=== PATIENT | male | born 1930 | race Caucasian/White ===

== ENCOUNTER 2016-09-22 15:18 | Inpatient (IN) | payer MEDICARE ==
[~2016-09-22] VITALS: Ht 168.9 cm; Wt 59.4 kg
[2016-09-22 15:31] LABS: BASOPHILS # (AUTO) 0.1 /CMM (0.0-0.2); BASOPHILS % (AUTO) 0.6 % (0.0-2.0); EOSINOPHILS # (AUTO) 0.3 /CMM (0.0-0.7); EOSINOPHILS % (AUTO) 2.6 % (0.0-6.0); HEMATOCRIT 39 % (39-51); HEMOGLOBIN 12.9 g/dL (13.5-17.5); LYMPHOCYTES # (AUTO) 4.6 /CMM (0.8-4.8); LYMPHOCYTES % (AUTO) 36.3 % (20.0-44.0); MEAN CORPUSCULAR HEMOGLOBIN 31 PG (26.0-33.0); MEAN CORPUSCULAR HGB CONC 34 g/dl (31.0-36.0); MEAN CORPUSCULAR VOLUME 92 fL (80-96); MONOCYTES # (AUTO) 1.1 /CMM (0.1-1.30); MONOCYTES % (AUTO) 8.4 % (2.0-12.0); NEUTROPHILS # (AUTO) 6.5 /CMM (1.8-8.9); NEUTROPHILS % (AUTO) 52.1 % (43.0-81.0); PLATELET COUNT (AUTO) 210 /CMM (150-450); RDW COEFFICIENT OF VARIATION 13.4 (11.5-15.0); WHITE BLOOD COUNT (AUTO) 12.6 K/uL (4.3-11.0)
--- NOTE | 2016-09-22 15:33 | NUR ---
PT TAKEN TO CT VIA JIAN
--- NOTE | 2016-09-22 15:37 | NUR ---
CALLED NURSING SUP. FOR TELE BED
[2016-09-22 15:42] LABS: CALCIUM, SERUM 8.9 mg/dL (8.5-10.1); CREATININE 1.6 mg/dL (0.6-1.3); POTASSIUM 4.6 mmol/L (3.5-5.1)
[2016-09-22 15:45] LABS: INR 0.95 (0.87-1.13); PROTHROMBIN TIME 9.9 SECS (9.5-12.7)
--- NOTE | 2016-09-22 15:45 | NUR ---
jose c from [facility] due to witnessed seizure. Patient arrived, alert, awake, appears in no apparent distress. Respiration even and unalabored. Skin is warm to touch and non diaphroretic, patient is afebrile. vss,. seizure precaution observed
[2016-09-22 15:48] LABS: ALBUMIN 3.6 g/dL (3.4-5.0); BILIRUBIN,DIRECT 0.1 mg/dL (0.0-0.2); BILIRUBIN,TOTAL 0.4 mg/dL (0.2-1.0); TOTAL PROTEIN, SERUM 7.1 g/dL (6.4-8.2)
[2016-09-22 15:49] LABS: TROPONIN I 0.017 ng/mL (0.00-0.056)
[2016-09-22] MEDS ORDERED: CARV3.122 PO (16:06)
[2016-09-22] MEDS ORDERED: CLOP75TA2 PO (16:06)
[2016-09-22] MEDS ORDERED: DUTA0.5C15 PO (16:06)
[2016-09-22] MEDS ORDERED: INSU100I14 SQ (16:06)
[2016-09-22] MEDS ORDERED: IRBE75TA11 PO (16:06)
[2016-09-22] MEDS ORDERED: GABA-532 PO ×2 (16:06)
[2016-09-22] MEDS ORDERED: DOXY-182 PO (16:06)
[2016-09-22] MEDS ORDERED: ROSU40TA PO (16:06)
[2016-09-22] MEDS ORDERED: INSU3INS6 SQ (16:06)
[2016-09-22] MEDS ORDERED: DONE10TA44 PO (16:06)
[2016-09-22] MEDS ORDERED: LEVO125T PO (16:06)
--- NOTE | 2016-09-22 16:18 | NUR ---
Report given to nurse Stepan jacinto lynn
--- NOTE | 2016-09-22 16:18 | NUR ---
Jason Berg, talking to MD gates for plan of care
--- NOTE | 2016-09-22 16:26 | NUR ---
CALLED (PCP), TRANSFERRED CALL TO
[2016-09-22] MEDS ORDERED: IV NS 0.9% 1,000 ML BAG IV ONE (16:30)
[2016-09-22] MEDS ORDERED: IV NS 0.9% 1,000 ML ONE (16:40)
[2016-09-22] MEDS ORDERED: MAG HYDROX/AL HYDROX/SIMETH 30 ML UDC PO PRN (17:00)
[2016-09-22] MEDS ORDERED: Z GUARD REMEDY 2 OZ OINT TP PRN (17:00)
[2016-09-22] MEDS ORDERED: ACETAMINOPHEN 325 MG TABLET PO PRN (17:00)
[2016-09-22] MEDS ORDERED: ONDANSETRON HCL/PF 4 MG/2 ML VIAL IVP PRN (17:00)
[2016-09-22] MEDS ORDERED: MAGNESIUM HYDROXIDE 30 ML UDC PO PRN (17:00)
[2016-09-22] MEDS ORDERED: VANCOMYCIN 1 GM in IV D5W 250 ML IV ONE (17:00)
[2016-09-22 17:10] VITALS: BP 127/68
--- NOTE | 2016-09-22 17:14 | NUR ---
pt transported to [address] [place] [address]
--- NOTE | 2016-09-22 17:15 | NUR ---
tele field applications specialist: admission admitted this 86 yr old male pt from [facility] with dx: new onset of seizure. awake, a/ox3, [place]; wears hearing aid to left ear. 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 family at bedside. oriented to room and surroundings. denies chest pain, sob, or any discomfort. vss, afebrile. in no apparent distress noted. will continue to monitor.
[2016-09-22] MEDS ORDERED: FEE PK DOSING 1 MIN EA MC ONE (17:34)
--- NOTE | 2016-09-22 17:40 | NUR ---
tele solidworks mechanical designer: notes placed pt on tele sr with bbb=[id number]. family remains at bedside. vadim river (anc[facility]) at bedside talking to pt's family and updated plan of care
--- NOTE | 2016-09-22 18:10 | NUR ---
m/s obstetrics and gynecology professor: notes dr. whittington notified re: admission with tx order received. may give tylenol prior to wound change. pt and made aware, but refused to assess wound on right foot (2nd toe diabetic ulcer), stated, "it was just dressed today, can it wait until tomorrow." [facility].
[2016-09-22] MEDS ORDERED: DEXTROSE 50%-WATER 50 ML DISP.SYRIN IV PRN (18:30)
[2016-09-22] MEDS: GENTAMICIN 0.1% OINT 15 GM TUBE TP SCH (18:44)
--- NOTE | 2016-09-22 19:00 | NUR ---
tele factory maintenance manager: cardio consult dr. toney here to see pt for consult. tele sr with bbb=86. remains at bedside. needs attended. instructed to call for assistance. will continue to monitor.
[2016-09-22 20:00] VITALS: BP 141/63
[2016-09-22] MEDS ORDERED: IV SET PRIMARY PUMP SET 1 EA INFUS.SET MC ONE (20:38)
[2016-09-22] MEDS ORDERED: IV NS 0.9% 250 ML IV ONE (20:38)
[2016-09-22] MEDS ORDERED: SECONDARY IV SET 1 EA INFUS.SET MC ONE ×2 (20:38→21:23)
[2016-09-22] MEDS: PIPERACILLIN /TAZOBACTAM 2.25 G in IV D5W 50 ML IV SCH (20:44)
[2016-09-22] MEDS: BLOOD SUGAR DIAGNOSTIC 1 EACH STRIP IN SCH ×2 (21:24→22:37)
[2016-09-22] MEDS: VANCOMYCIN 0.75 GM in IV D5W 250 ML IV SCH (21:25)
[2016-09-22] MEDS ORDERED: ATORVASTATIN 40 MG TABLET PO SCH (22:00)
[2016-09-22] MEDS: IV NS 0.9% 1,000 ML IV PRN (22:22)
[2016-09-22] MEDS: DONEPEZIL 5 MG TABLET PO SCH (22:23)
[2016-09-22] MEDS: GABAPENTIN 100 MG CAPSULE PO SCH (22:23)
[2016-09-22] MEDS: INSULIN REGULAR, HUMAN 100 UNIT/ML 3 ML VIAL SQ PRN (22:31)
[2016-09-22] MEDS: HEPARIN SODIUM, PORCINE 5000 UNITS/1 ML VIAL SQ SCH (22:32)
[2016-09-23] VITALS: BP 141/63
--- NOTE | 2016-09-23 01:13 | NUR ---
TELE/RN BLOOD SUGAR 39. RECHECKED, 38, PATIENT IS ASYMPTOMATIC, AWAKE, ALERT, ORIENTED. D50 IV WAS GIVEN ORDERED. WILL MONITOR.
[2016-09-23] MEDS: BLOOD SUGAR DIAGNOSTIC 1 EACH STRIP IN SCH ×9 (01:42→22:00)
--- NOTE | 2016-09-23 01:42 | NUR ---
TELE/RN ACCU CHECK DONE, BS 132. WILL CONTINUE TO MONITOR.
[2016-09-23] MEDS: PIPERACILLIN /TAZOBACTAM 2.25 G in IV D5W 50 ML IV SCH ×4 (01:43→17:25)
--- NOTE | 2016-09-23 06:44 | NUR ---
TELE/RN AWAKE, ALERT, ORIENTED, COMFORTABLE, NO CHANGE IN CONDITION. BLOOD SUGAR 191 DID NOT COVER THE BLOOD SUGAR AT 0100 WAS 39. WILL ENDORSE TO DAY RN. ALL NEEDS ATTENDED AT THIS TIME. WILL CONTINUE TO MONITOR.
--- NOTE | 2016-09-23 07:10 | NUR ---
SLEDGER OPENING NOTES RECEIVED PT. FROM NIGHTSHIFT NURSE IN STABLE CONDITION. A/O X3. NO SOB OR SIGNS OF DISTRESS NOTED. NO COMPLAINTS OF PAIN AT THIS TIME. WOUND PRESENT ON RIGHT BIG TOE AND SECOND TOE. DRESSING IS DRY AND INTACT. IV ON LEFT AC 20G PATENT AND INTACT INFUSING NS @ 75 ML/HR. PT. TOLERATING INFUSION WELL. NO REDNESS OR INFILTRATION NOTED. ON TELE MONITOR WITH SR & BBB, HR:75. SEIZURE PRECAUTIONS IN PLACE. BED IN LOW LOCKED POTION, SIDE RAILS UP X3 AND PADDED, CALL LIGHT WITHIN REACH. WILL CONTINUE TO MONITOR.
[2016-09-23 08:00] VITALS: BP 119/57
[2016-09-23 08:23] LABS: BASOPHILS % (AUTO) 0.3 % (0.0-2.0); EOSINOPHILS # (AUTO) 0.1 /CMM (0.0-0.7); EOSINOPHILS % (AUTO) 1.2 % (0.0-6.0); HEMATOCRIT 31 % (39-51); HEMOGLOBIN 10.6 g/dL (13.5-17.5); LYMPHOCYTES # (AUTO) 1.6 /CMM (0.8-4.8); LYMPHOCYTES % (AUTO) 19.3 % (20.0-44.0); MEAN CORPUSCULAR HEMOGLOBIN 30 PG (26.0-33.0); MEAN CORPUSCULAR HGB CONC 34 g/dl (31.0-36.0); MEAN CORPUSCULAR VOLUME 89 fL (80-96); MONOCYTES # (AUTO) 0.6 /CMM (0.1-1.30); MONOCYTES % (AUTO) 7.8 % (2.0-12.0); NEUTROPHILS # (AUTO) 5.8 /CMM (1.8-8.9); NEUTROPHILS % (AUTO) 71.4 % (43.0-81.0); PLATELET COUNT (AUTO) 158 /CMM (150-450); RDW COEFFICIENT OF VARIATION 13.6 (11.5-15.0); RED BLOOD CELL COUNT(AUTO) 3.51 MIL/uL (4.5-6.0); WHITE BLOOD COUNT (AUTO) 8.2 K/uL (4.3-11.0)
[2016-09-23 08:49] LABS: ALANINE AMINOTRANSFERASE 21 U/L (12-78); ALBUMIN 2.8 g/dL (3.4-5.0); ALKALINE PHOSPHATASE 47 U/L (46-116); ASPARTATE AMINOTRANSFERASE 26 U/L (15-37); BILIRUBIN,TOTAL 0.6 mg/dL (0.2-1.0); CALCIUM, SERUM 7.9 mg/dL (8.5-10.1); CARBON DIOXIDE 25 mmol/L (21-32); CHLORIDE 109 mmol/L (98-107); CREATININE 1.3 mg/dL (0.6-1.3); GLUCOSE 194 mg/dL (74-106); PHOSPHORUS 4.2 mg/dL (2.5-4.9); SODIUM SERUM 143 mmol/L (136-145); TOTAL PROTEIN, SERUM 5.7 g/dL (6.4-8.2); UREA NITROGEN, BLOOD 26 mg/dL (7-18)
[2016-09-23 08:51] LABS: CHOLESTEROL 141 mg/dL (<200); HDL CHOLESTEROL 56 mg/dL (40-60); LDL 67 mg/dL (0-99); THYROID STIMULATING HORMONE 0.125 uIU/mL (0.358-3.74); TRIGLYCERIDES 67 mg/dL (30-150)
[2016-09-23] MEDS: GENTAMICIN 0.1% OINT 15 GM TUBE TP SCH (09:00)
[2016-09-23] MEDS: ASPIRIN 81 MG TAB.CHEW PO SCH (09:11)
[2016-09-23] MEDS: CARVEDILOL 3.125 MG TABLET PO SCH ×2 (09:12→17:23)
[2016-09-23] MEDS: DUTASTERIDE (0.5 MG) 0.5 MG CAPSULE PO SCH (09:13)
[2016-09-23] MEDS: CLOPIDOGREL BISULFATE 75 MG TABLET PO SCH (09:13)
[2016-09-23] MEDS: PANTOPRAZOLE 40 MG TABLET.DR PO SCH (09:14)
[2016-09-23] MEDS: LEVOTHYROXINE SODIUM 125 MCG TABLET PO SCH (09:14)
[2016-09-23] MEDS: GABAPENTIN 100 MG CAPSULE PO SCH ×2 (09:15→21:59)
[2016-09-23] MEDS: IRBESARTAN (150MG) 150 MG TABLET PO SCH (09:16)
[2016-09-23] MEDS: HEPARIN SODIUM, PORCINE 5000 UNITS/1 ML VIAL SQ SCH ×2 (09:17→22:06)
--- NOTE | 2016-09-23 09:43 | NUR ---
PORTABLE TRACKMAN NOTES PT. IS REFUSING PICTURES OF SKIN AND WOUND AT THIS TIME.
--- NOTE | 2016-09-23 10:17 | NUR ---
WOUND CARE CONSULT: PT REFUSED SKIN ASSESSMENT.
[2016-09-23] MEDS: INSULIN REGULAR, HUMAN 100 UNIT/ML 3 ML VIAL SQ PRN ×3 (11:33→22:15)
[2016-09-23 12:00] VITALS: BP 127/61
[2016-09-23] MEDS: VANCOMYCIN 0.75 GM in IV D5W 250 ML IV SCH (14:17)
[2016-09-23] MEDS: IV NS 0.9% 1,000 ML IV PRN (15:37)
[2016-09-23 16:00] VITALS: BP 122/58
--- NOTE | 2016-09-23 19:07 | NUR ---
MS RN CLOSING NOTES PT. IN STABLE CONDITION. A/O X3 WITH PERIODS OF CONFUSION. AT BEDSIDE. ALL NEEDS MET AND ORDERS CARRIED OUT ACCORDINGLY. ALL SAFETY MEASURES IN PLACE. NO SEIZURE ACTIVITY DURING SHIFT. WILL ENDORSE TO NIGHTSHIFT NURSE FOR RACHEL.
[2016-09-23 20:00] VITALS: BP 112/47
[2016-09-23] MEDS: DONEPEZIL 5 MG TABLET PO SCH (21:59)
[2016-09-23] MEDS ORDERED: CRESTOR 40 MG PO SCH (22:00)
--- NOTE | 2016-09-23 22:15 | NUR ---
PROCESSING ASSOCIATE/NOTES BLOOD SUGAR 173, 3 UNITS OF INSULIN GIVEN ORDERED BETTY SQ AND SNACKS ALSO SERVED. WILL CONTINUE TO MONITOR. PLACE CALL LIGHT AT REACH.
--- NOTE | 2016-09-24 | NUR ---
CHARGE ACCOUNT IDENTIFICATION CLERK/NOTES ZOSYN IVF HUNG BY NURSE BREA ORDERED. WILL CONTINUE TO MONITOR. BED ALARM SET FOR SAFETY.
[2016-09-24] MEDS: PIPERACILLIN /TAZOBACTAM 2.25 G in IV D5W 50 ML IV SCH ×3 (00:04→12:17)
[2016-09-24] MEDS: BLOOD SUGAR DIAGNOSTIC 1 EACH STRIP IN SCH ×2 (06:28→12:17)
[2016-09-24] MEDS: INSULIN REGULAR, HUMAN 100 UNIT/ML 3 ML VIAL SQ PRN ×2 (06:33→12:24)
--- NOTE | 2016-09-24 06:56 | NUR ---
BONE PLANT SUPERVISOR/CLOSING NOTES BLOOD SUGAR 268,. 6 UNITS OF INSULIN GIVEN . NO SIGNS OF HYPER GLYCEMIA NOTED. ALL DUE MEDS GIVEN . SLEPT ON AND OFF. RE-ORIENTED MUCH POSSIBLE, BED ALARM SET FOR SAFETY. IVF STILL INFUSING. ENDORSE TO AM NURSE FOR CONTINUITY OF CARE.
[2016-09-24 06:57] LABS: CALCIUM, SERUM 8.3 mg/dL (8.5-10.1); CARBON DIOXIDE 24 mmol/L (21-32); CHLORIDE 109 mmol/L (98-107); CREATININE 1.4 mg/dL (0.6-1.3); GLUCOSE 294 mg/dL (74-106); POTASSIUM 4.9 mmol/L (3.5-5.1); SODIUM SERUM 143 mmol/L (136-145); UREA NITROGEN, BLOOD 25 mg/dL (7-18)
[2016-09-24] MEDS: VANCOMYCIN 0.75 GM in IV D5W 250 ML IV SCH (07:17)
[2016-09-24 08:00] VITALS: BP 130/72
--- NOTE | 2016-09-24 08:00 | NUR ---
AM RN NOTES RECEIVED PT IN BED AWAKE, NO SOB OR DISTRESS NOTED, NO PAIN OR DISCOMFORT, WILL MONITOR, PT'S SON AT BEDSIDE.
[2016-09-24] MEDS: GABAPENTIN 100 MG CAPSULE PO SCH (08:37)
[2016-09-24] MEDS: LEVOTHYROXINE SODIUM 125 MCG TABLET PO SCH (08:38)
[2016-09-24] MEDS: CLOPIDOGREL BISULFATE 75 MG TABLET PO SCH (08:38)
[2016-09-24] MEDS: DUTASTERIDE (0.5 MG) 0.5 MG CAPSULE PO SCH (08:38)
[2016-09-24] MEDS: ASPIRIN 81 MG TAB.CHEW PO SCH (08:38)
[2016-09-24] MEDS: CARVEDILOL 3.125 MG TABLET PO SCH (08:39)
[2016-09-24] MEDS: PANTOPRAZOLE 40 MG TABLET.DR PO SCH (08:39)
[2016-09-24] MEDS: GENTAMICIN 0.1% OINT 15 GM TUBE TP SCH (08:40)
[2016-09-24 08:41] VITALS: BP 130/72
[2016-09-24] MEDS: IRBESARTAN (150MG) 150 MG TABLET PO SCH (08:41)
[2016-09-24] MEDS: HEPARIN SODIUM, PORCINE 5000 UNITS/1 ML VIAL SQ SCH (08:45)
--- NOTE | 2016-09-24 14:15 | NUR ---
PT DISCHARGED HOME WITH IN STABLE CONDITION, NO PAIN OR DISCOMFORT NOTED, NO SOB OR DISTRESS, NO S/S OF HYPO/HYPERGLYCEMIA NOTED, WOUND DRESSING ON RIGHT FOOT DONE, PICTURES TAKEN AND PLACED IN CHART, INSTRUCTIONS GIVEN, EDUCATION DONE, PT ACCOMPANIED BY ME AND HIS , LEFT HOSPITAL WITH PRIVATE CARE SAFELY.
[2016-09-24] MEDS ORDERED: VANCOMYCIN 1 GM in IV D5W 250 ML IV SCH (21:00)
== END 2016-09-24 14:10 | disposition home or self-care (01) | DRG 100 ==
LOC: ER 15:20 → TELE 16:38 → MED 09-23 16:08
PROVIDERS: ADMIT Nurse Practitioner Acute Care; ATTEND Nurse Practitioner Acute Care
DX: G40.409 Other generalized epilepsy and epileptic syndromes, not intractable, without status epilepticus (principal); N17.0 Acute kidney failure with tubular necrosis; M86.8X7 Other osteomyelitis, ankle and foot; I12.9 Hypertensive chronic kidney disease with stage 1 through stage 4 chronic kidney disease, or unspecified chronic kidney disease; G40.509 Epileptic seizures related to external causes, not intractable, without status epilepticus; F03.90 Unspecified dementia, unspecified severity, without behavioral disturbance, psychotic disturbance, mood disturbance, and anxiety; N18.9 Chronic kidney disease, unspecified; Z95.1 Presence of aortocoronary bypass graft; I25.10 Atherosclerotic heart disease of native coronary artery without angina pectoris; E10.22 Type 1 diabetes mellitus with diabetic chronic kidney disease; E10.649 Type 1 diabetes mellitus with hypoglycemia without coma; E10.69 Type 1 diabetes mellitus with other specified complication; E78.5 Hyperlipidemia, unspecified; G89.29 Other chronic pain; Z79.4 Long term (current) use of insulin; Z79.899 Other long term (current) drug therapy; Z85.850 Personal history of malignant neoplasm of thyroid; N40.0 Benign prostatic hyperplasia without lower urinary tract symptoms; Z86.73 Personal history of transient ischemic attack (TIA), and cerebral infarction without residual deficits; T41.5X5A Adverse effect of therapeutic gases, initial encounter; Y92.238 Other place in hospital as the place of occurrence of the external cause; E89.0 Postprocedural hypothyroidism; E10.51 Type 1 diabetes mellitus with diabetic peripheral angiopathy without gangrene; Z98.1 Arthrodesis status
CPT/HCPCS: 36415; 70450-TC; 71010-TC; 80048-TC; 80053-TC; 80061-TC; 80076-TC; 80202-TC; 82962-TC; 83735-TC; 84100-TC; 84443-TC; 84484-TC; 85025-TC; 85730-TC; 87040-TC; 87081-TC; 95819-TC; A4606; J1644; J1815; J2543; J3370; J7030; J7050; J7060; Z7610

== ENCOUNTER 2017-05-07 09:05 | Outpatient (CLI) | payer MEDICARE ==
[~2017-05-07 09:05] MED LIST: CARV3.122 PO; CLOP75TA15 PO; DONE10TA44 PO; DOXY-182 PO; DUTA0.5C15 PO; GABA-532 PO; INSU100I14 SQ; INSU3INS6 SQ; IRBE75TA11 PO; LEVO125T PO; ROSU40TA PO
[2017-05-10] MEDS ORDERED: BACITRACIN 50000 UNITS/VIAL ONE (14:08)
== END 2017-05-07 23:59 | disposition other institution (70) ==
LOC: WOU 09:05
PROVIDERS: ATTEND Podiatrist Foot & Ankle Surgery
DX: E11.52 Type 2 diabetes mellitus with diabetic peripheral angiopathy with gangrene (principal); E11.621 Type 2 diabetes mellitus with foot ulcer; E11.42 Type 2 diabetes mellitus with diabetic polyneuropathy; I96 Gangrene, not elsewhere classified; L97.504 Non-pressure chronic ulcer of other part of unspecified foot with necrosis of bone; L03.115 Cellulitis of right lower limb; I25.10 Atherosclerotic heart disease of native coronary artery without angina pectoris; Z95.1 Presence of aortocoronary bypass graft; Z87.891 Personal history of nicotine dependence; Z85.850 Personal history of malignant neoplasm of thyroid; E89.0 Postprocedural hypothyroidism; H91.90 Unspecified hearing loss, unspecified ear; Z79.4 Long term (current) use of insulin; Z79.82 Long term (current) use of aspirin
CPT/HCPCS: A6402; G0463

== ENCOUNTER 2017-05-07 10:40 | Inpatient (IN) | payer MEDICARE ==
[~2017-05-07] VITALS: Ht 167.6 cm; Wt 53.1 kg
[~2017-05-07 10:40] MED LIST changes: +INSULIN DETEMIR 100 UNIT/ML CARTRIDGE SQ SCH
[2017-05-07 11:25] LABS: BASOPHILS # (AUTO) 0.1 /CMM (0.0-0.2); BASOPHILS % (AUTO) 0.8 % (0.0-2.0); EOSINOPHILS # (AUTO) 0.1 /CMM (0.0-0.7); EOSINOPHILS % (AUTO) 0.6 % (0.0-6.0); HEMATOCRIT 38 % (39-51); HEMOGLOBIN 12.7 g/dL (13.5-17.5); LYMPHOCYTES # (AUTO) 1.3 /CMM (0.8-4.8); LYMPHOCYTES % (AUTO) 7.3 % (20.0-44.0); MEAN CORPUSCULAR HEMOGLOBIN 30 PG (26.0-33.0); MEAN CORPUSCULAR HGB CONC 34 g/dl (31.0-36.0); MEAN CORPUSCULAR VOLUME 88 fL (80-96); MONOCYTES # (AUTO) 1.5 /CMM (0.1-1.30); MONOCYTES % (AUTO) 8.1 % (2.0-12.0); NEUTROPHILS # (AUTO) 15.4 /CMM (1.8-8.9); NEUTROPHILS % (AUTO) 83.2 % (43.0-81.0); PLATELET COUNT (AUTO) 331 /CMM (150-450); RDW COEFFICIENT OF VARIATION 12.5 (11.5-15.0); WHITE BLOOD COUNT (AUTO) 18.4 K/uL (4.3-11.0)
[2017-05-07] MEDS ORDERED: MORPHINE SULFATE INJ 2 MG/ML DISP.SYRIN IV ONE (11:30)
[2017-05-07] MEDS ORDERED: MORPHINE SULFATE INJ 4 MG/ML DISP.SYRIN ONE (11:30)
[2017-05-07] MEDS ORDERED: VANCOMYCIN 1 GM in IV D5W 250 ML IV ONE (11:30)
[2017-05-07] MEDS ORDERED: GENTAMICIN 80 MG in IV D5W 50 ML IV ONE (11:30)
[2017-05-07] MEDS ORDERED: ONDANSETRON HCL/PF 4 MG/2 ML VIAL IVP ONE (11:30)
[2017-05-07] MEDS ORDERED: ONDANSETRON HCL/PF 4 MG/2 ML VIAL ONE (11:30)
[2017-05-07 11:35] LABS: CALCIUM, SERUM 8.2 mg/dL (8.5-10.1); CARBON DIOXIDE 30 mmol/L (21-32); CHLORIDE 99 mmol/L (98-107); CREATININE 1.3 mg/dL (0.6-1.3); GLUCOSE 294 mg/dL (74-106); SODIUM SERUM 133 mmol/L (136-145); UREA NITROGEN, BLOOD 32 mg/dL (7-18)
[2017-05-07 11:39] LABS: INR 1.01 (0.87-1.13)
[2017-05-07 11:41] LABS: ALANINE AMINOTRANSFERASE 11 U/L (12-78); ALBUMIN 2.8 g/dL (3.4-5.0); ALKALINE PHOSPHATASE 88 U/L (46-116); ASPARTATE AMINOTRANSFERASE 23 U/L (15-37); BILIRUBIN,TOTAL 0.3 mg/dL (0.2-1.0); TOTAL PROTEIN, SERUM 7.2 g/dL (6.4-8.2)
[2017-05-07 11:43] LABS: TROPONIN I < 0.017 ng/mL (0.00-0.056)
[2017-05-07] MEDS ORDERED: METOPROLOL TARTRATE 50 MG TABLET ONE (11:58)
[2017-05-07] MEDS ORDERED: METOPROLOL TARTRATE 25 MG TABLET PO ONE (12:00)
[2017-05-07] MEDS ORDERED: IV NS 0.9% 1,000 ML IV PRN (12:16)
[2017-05-07 12:19] LABS: APPEARANCE,URINE Clear (CLEAR); BILIRUBIN,URINE Negative (NEGATIVE); BLOOD, URINE Small Ery/uL (NEGATIVE); COLOR,URINE Yellow (YELLOW); KETONES,URINE Negative (NEGATIVE); LEUKOCYTE ESTERASE ,URINE Negative (NEGATIVE); NITRITE, URINE Negative (NEGATIVE); PH,URINE 5.5 (5.0-8.0); PROTEIN,URINE 100 mg/dl (NEGATIVE); UGLUCOSE 500 MG/DL mg/dL (NEGATIVE); UROBILINOGEN,URINE 0.2 EU/dL (0.2)
[2017-05-07 12:23] LABS: BACTERIA,URINE None seen /HPF (None Seen); SQUAMOUS EPITHELIAL CELL,UR Few /HPF (None Seen); WBC,URINE 0-2 /HPF (0-3)
[2017-05-07] MEDS ORDERED: ENOXAPARIN SODIUM 30 MG/0.3 ML DISP.SYRIN SQ SCH (12:30)
[2017-05-07] MEDS ORDERED: MAG HYDROX/AL HYDROX/SIMETH 30 ML UDC PO PRN ×2 (12:30→13:15)
[2017-05-07] MEDS ORDERED: BLOOD SUGAR DIAGNOSTIC 1 EACH STRIP VI SCH (12:30)
[2017-05-07] MEDS ORDERED: Z GUARD REMEDY 2 OZ OINT TP PRN ×2 (12:30→13:15)
[2017-05-07] MEDS ORDERED: *INSULIN REGULAR(HUMULIN R)HUM 100 UNIT/ML VIAL SQ PRN ×2 (12:30→13:15)
[2017-05-07] MEDS ORDERED: VANCOMYCIN 1 GM in IV D5W 250 ML IV SCH (12:30)
[2017-05-07] MEDS ORDERED: ACETAMINOPHEN 325 MG TABLET PO PRN ×2 (12:30→13:15)
[2017-05-07] MEDS ORDERED: hydrALAZINE HCL 25 MG TABLET PO PRN (12:30)
[2017-05-07] MEDS ORDERED: ONDANSETRON HCL/PF 4 MG/2 ML VIAL IVP PRN ×2 (12:30→13:15)
[2017-05-07] MEDS ORDERED: ZOLPIDEM TARTRATE 5 MG TABLET PO PRN ×2 (12:30→13:15)
[2017-05-07] MEDS ORDERED: HYDROCODONE/APAP 5/325MG 1 EACH TABLET PO PRN (12:30)
[2017-05-07] MEDS ORDERED: DEXTROSE 50%-WATER 50 ML DISP.SYRIN IV PRN (12:30)
[2017-05-07] MEDS ORDERED: INSULIN REGULAR, HUMAN 100 UNIT/ML 3 ML VIAL SQ PRN (12:30)
[2017-05-07] MEDS ORDERED: MAGNESIUM HYDROXIDE 30 ML UDC PO PRN ×2 (12:30→13:15)
[2017-05-07] MEDS ORDERED: GENTAMICIN 80 MG in IV D5W 50 ML IV SCH (13:00)
[2017-05-07 13:10] VITALS: BP 181/81
[2017-05-07 13:15] VITALS: BP 175/68
[2017-05-07] MEDS ORDERED: FEE PK DOSING 1 MIN EA MC ONE (14:35)
[2017-05-07 15:00] VITALS: BP 133/66
[2017-05-07] MEDS: INSULIN DETEMIR 100 UNIT/ML CARTRIDGE SQ SCH (15:00)
[2017-05-07] MEDS: IV NS 0.9% 1,000 ML IV PRN (15:00)
[2017-05-07] MEDS: HYDROCODONE/APAP 5/325MG 1 EACH TABLET PO PRN ×2 (15:16→23:59)
[2017-05-07] MEDS: CADEXOMER IODINE 40 GM TUBE TP SCH (16:11)
[2017-05-07] MEDS: DOXYCYCLINE HYCLATE (100 MG) 100 MG TABLET PO SCH (16:12)
[2017-05-07] MEDS: CARVEDILOL 3.125 MG TABLET PO SCH (16:13)
[2017-05-07] MEDS: BLOOD SUGAR DIAGNOSTIC 1 EACH STRIP VI SCH ×2 (16:44→22:29)
[2017-05-07] MEDS: INSULIN REGULAR, HUMAN 100 UNIT/ML 3 ML VIAL SQ PRN (16:53)
[2017-05-07] MEDS ORDERED: CARVEDILOL 3.125 MG TABLET PO SCH (17:00)
[2017-05-07 20:00] VITALS: BP 135/70
[2017-05-07] MEDS ORDERED: GABAPENTIN 100 MG CAPSULE PO SCH (22:00)
[2017-05-07] MEDS: ENOXAPARIN SODIUM 30 MG/0.3 ML DISP.SYRIN SQ SCH (22:29)
[2017-05-07] MEDS: GABAPENTIN 100 MG CAPSULE PO SCH (22:29)
[2017-05-07] MEDS: DONEPEZIL 5 MG TABLET PO SCH (22:29)
[2017-05-08] VITALS: BP 171/83
[2017-05-08 04:00] VITALS: BP 161/70
[2017-05-08] MEDS ORDERED: VANCOMYCIN 1 GM VIAL ONE (06:13)
[2017-05-08] MEDS: IV NS 0.9% 1,000 ML IV PRN (06:13)
[2017-05-08] MEDS: BLOOD SUGAR DIAGNOSTIC 1 EACH STRIP VI SCH ×4 (06:14→21:38)
[2017-05-08] MEDS: VANCOMYCIN 1 GM in IV D5W 250 ML IV SCH (06:16)
[2017-05-08] MEDS ORDERED: LEVOTHYROXINE SODIUM 125 MCG TABLET PO SCH (07:30)
[2017-05-08 08:00] VITALS: BP 156/76
[2017-05-08 08:55] LABS: CALCIUM, SERUM 8.1 mg/dL (8.5-10.1); CARBON DIOXIDE 28 mmol/L (21-32); CHLORIDE 99 mmol/L (98-107); CREATININE 1.3 mg/dL (0.6-1.3); GLUCOSE 209 mg/dL (74-106); SODIUM SERUM 136 mmol/L (136-145); UREA NITROGEN, BLOOD 32 mg/dL (7-18)
[2017-05-08] MEDS ORDERED: GABAPENTIN 100 MG CAPSULE PO SCH (09:00)
[2017-05-08] MEDS: DOXYCYCLINE HYCLATE (100 MG) 100 MG TABLET PO SCH ×2 (09:09→18:00)
[2017-05-08] MEDS: ATORVASTATIN 10 MG TABLET PO SCH (09:09)
[2017-05-08] MEDS: GABAPENTIN 100 MG CAPSULE PO SCH ×2 (09:09→21:39)
[2017-05-08] MEDS: LEVOTHYROXINE SODIUM 125 MCG TABLET PO SCH (09:10)
[2017-05-08] MEDS: CARVEDILOL 3.125 MG TABLET PO SCH ×2 (09:10→18:00)
[2017-05-08] MEDS: CADEXOMER IODINE 40 GM TUBE TP SCH (09:12)
[2017-05-08] MEDS: DAKINS QUARTER STRENGTH (0.125%) 480 ML BOTTLE TOP SCH (11:07)
[2017-05-08] MEDS: INSULIN DETEMIR 100 UNIT/ML CARTRIDGE SQ SCH (11:08)
[2017-05-08] MEDS: INSULIN REGULAR, HUMAN 100 UNIT/ML 3 ML VIAL SQ PRN (12:12)
[2017-05-08] MEDS: HYDROCODONE/APAP 5/325MG 1 EACH TABLET PO PRN (13:55)
[2017-05-08] MEDS ORDERED: LORAZEPAM 0.5 MG TABLET PO ONE (15:30)
[2017-05-08] MEDS: MORPHINE SULFATE INJ 4 MG/ML DISP.SYRIN IV PRN (15:53)
[2017-05-08 16:00] VITALS: BP 129/57
[2017-05-08] MEDS ORDERED: MORPHINE SULFATE INJ 4 MG/ML DISP.SYRIN IV PRN (16:00)
[2017-05-08] MEDS: GENTAMICIN 80 MG in IV D5W 50 ML IV SCH (16:16)
[2017-05-08 20:00] VITALS: BP 166/98
[2017-05-08] MEDS: ENOXAPARIN SODIUM 30 MG/0.3 ML DISP.SYRIN SQ SCH (21:39)
[2017-05-08] MEDS: DONEPEZIL 5 MG TABLET PO SCH (21:39)
[2017-05-08] MEDS: DEXTROSE 50%-WATER 50 ML DISP.SYRIN IV PRN (21:43)
[2017-05-08] MEDS ORDERED: TRAMADOL HCL 50 MG TABLET PO PRN (22:30)
[2017-05-08] MEDS ORDERED: IV D5/0.45 NACL 1,000 ML IV ONE (22:30)
[2017-05-08] MEDS ORDERED: ALPRAZOLAM 0.25 MG TABLET PO PRN (22:30)
[2017-05-09] MEDS: VANCOMYCIN 1 GM in IV D5W 250 ML IV SCH (00:37)
[2017-05-09] MEDS: MORPHINE SULFATE INJ 4 MG/ML DISP.SYRIN IV PRN (00:46)
[2017-05-09] MEDS: BLOOD SUGAR DIAGNOSTIC 1 EACH STRIP VI SCH ×4 (07:00→21:11)
[2017-05-09 07:04] LABS: EOSINOPHILS # (AUTO) 0.1 /CMM (0.0-0.7); EOSINOPHILS % (AUTO) 0.4 % (0.0-6.0); HEMATOCRIT 35 % (39-51); HEMOGLOBIN 11.9 g/dL (13.5-17.5); LYMPHOCYTES # (AUTO) 1.6 /CMM (0.8-4.8); LYMPHOCYTES % (AUTO) 7.5 % (20.0-44.0); MEAN CORPUSCULAR HEMOGLOBIN 31 PG (26.0-33.0); MEAN CORPUSCULAR HGB CONC 34 g/dl (31.0-36.0); MEAN CORPUSCULAR VOLUME 89 fL (80-96); MONOCYTES % (AUTO) 4.8 % (2.0-12.0); NEUTROPHILS # (AUTO) 18.5 /CMM (1.8-8.9); NEUTROPHILS % (AUTO) 87.3 % (43.0-81.0); PLATELET COUNT (AUTO) 302 /CMM (150-450); RDW COEFFICIENT OF VARIATION 13.5 (11.5-15.0); RED BLOOD CELL COUNT(AUTO) 3.89 MIL/uL (4.5-6.0); WHITE BLOOD COUNT (AUTO) 21.2 K/uL (4.3-11.0)
[2017-05-09 07:16] LABS: CALCIUM, SERUM 8.4 mg/dL (8.5-10.1); CARBON DIOXIDE 27 mmol/L (21-32); CHLORIDE 99 mmol/L (98-107); CREATININE 1.3 mg/dL (0.6-1.3); GLUCOSE 204 mg/dL (74-106); SODIUM SERUM 134 mmol/L (136-145); UREA NITROGEN, BLOOD 28 mg/dL (7-18)
[2017-05-09] MEDS: LEVOTHYROXINE SODIUM 125 MCG TABLET PO SCH (07:30)
[2017-05-09 08:00] VITALS: BP 147/72
[2017-05-09 08:43] LABS: MAGNESIUM 1.8 mg/dL (1.8-2.4); PHOSPHORUS 3.8 mg/dL (2.5-4.9)
[2017-05-09] MEDS: ATORVASTATIN 10 MG TABLET PO SCH (09:32)
[2017-05-09] MEDS: GABAPENTIN 100 MG CAPSULE PO SCH ×2 (09:32→21:09)
[2017-05-09] MEDS: DOXYCYCLINE HYCLATE (100 MG) 100 MG TABLET PO SCH ×2 (09:32→16:14)
[2017-05-09] MEDS: CARVEDILOL 3.125 MG TABLET PO SCH ×2 (09:32→16:13)
[2017-05-09] MEDS: INSULIN DETEMIR 100 UNIT/ML CARTRIDGE SQ SCH (09:42)
[2017-05-09] MEDS: INSULIN REGULAR, HUMAN 100 UNIT/ML 3 ML VIAL SQ PRN (12:11)
[2017-05-09] MEDS: HYDROCODONE/APAP 5/325MG 1 EACH TABLET PO PRN ×3 (12:18→21:10)
[2017-05-09 16:00] VITALS: BP 114/50
[2017-05-09] MEDS: GENTAMICIN 80 MG in IV D5W 50 ML IV SCH (16:08)
[2017-05-09] MEDS: VANCOMYCIN 0.75 GM in IV D5W 250 ML IV SCH (18:15)
[2017-05-09 20:00] VITALS: BP 142/79
[2017-05-09] MEDS: DAKINS QUARTER STRENGTH (0.125%) 480 ML BOTTLE TOP SCH (21:17)
[2017-05-09] MEDS: CADEXOMER IODINE 40 GM TUBE TP SCH (21:18)
[2017-05-09] MEDS ORDERED: DONEPEZIL 5 MG TABLET ONE (21:23)
[2017-05-09] MEDS: DONEPEZIL 5 MG TABLET PO SCH (21:25)
[2017-05-09] MEDS: ENOXAPARIN SODIUM 30 MG/0.3 ML DISP.SYRIN SQ SCH (21:40)
[2017-05-10 07:25] LABS: BASOPHILS % (AUTO) 0.1 % (0.0-2.0); EOSINOPHILS # (AUTO) 0.3 /CMM (0.0-0.7); EOSINOPHILS % (AUTO) 1.5 % (0.0-6.0); HEMATOCRIT 34 % (39-51); HEMOGLOBIN 11.8 g/dL (13.5-17.5); LYMPHOCYTES # (AUTO) 1.7 /CMM (0.8-4.8); LYMPHOCYTES % (AUTO) 9.7 % (20.0-44.0); MEAN CORPUSCULAR HEMOGLOBIN 31 PG (26.0-33.0); MEAN CORPUSCULAR HGB CONC 34 g/dl (31.0-36.0); MEAN CORPUSCULAR VOLUME 89 fL (80-96); MONOCYTES # (AUTO) 1.4 /CMM (0.1-1.30); MONOCYTES % (AUTO) 8.1 % (2.0-12.0); NEUTROPHILS # (AUTO) 13.7 /CMM (1.8-8.9); NEUTROPHILS % (AUTO) 80.6 % (43.0-81.0); PLATELET COUNT (AUTO) 311 /CMM (150-450); RDW COEFFICIENT OF VARIATION 13.8 (11.5-15.0); RED BLOOD CELL COUNT(AUTO) 3.85 MIL/uL (4.5-6.0)
[2017-05-10] MEDS: LEVOTHYROXINE SODIUM 125 MCG TABLET PO SCH (07:30)
[2017-05-10] MEDS: BLOOD SUGAR DIAGNOSTIC 1 EACH STRIP VI SCH ×4 (07:57→23:48)
[2017-05-10 08:01] LABS: CALCIUM, SERUM 8.5 mg/dL (8.5-10.1); CARBON DIOXIDE 29 mmol/L (21-32); CHLORIDE 101 mmol/L (98-107); CREATININE 1.2 mg/dL (0.6-1.3); GLUCOSE 235 mg/dL (74-106); MAGNESIUM 1.8 mg/dL (1.8-2.4); PHOSPHORUS 3.6 mg/dL (2.5-4.9); POTASSIUM 4.2 mmol/L (3.5-5.1); SODIUM SERUM 136 mmol/L (136-145); UREA NITROGEN, BLOOD 26 mg/dL (7-18)
[2017-05-10] MEDS: ATORVASTATIN 10 MG TABLET PO SCH (08:01)
[2017-05-10] MEDS: CARVEDILOL 3.125 MG TABLET PO SCH ×2 (08:01→17:05)
[2017-05-10] MEDS: INSULIN DETEMIR 100 UNIT/ML CARTRIDGE SQ SCH (08:02)
[2017-05-10] MEDS: DOXYCYCLINE HYCLATE (100 MG) 100 MG TABLET PO SCH ×2 (08:02→16:58)
[2017-05-10] MEDS: GABAPENTIN 100 MG CAPSULE PO SCH ×2 (08:02→21:38)
[2017-05-10] MEDS: DAKINS QUARTER STRENGTH (0.125%) 480 ML BOTTLE TOP SCH (09:00)
[2017-05-10] MEDS: CADEXOMER IODINE 40 GM TUBE TP SCH (09:00)
[2017-05-10] MEDS: HYDROCODONE/APAP 10/325MG 1 EA TABLET PO PRN ×2 (10:28→16:58)
[2017-05-10] MEDS: VANCOMYCIN 0.75 GM in IV D5W 250 ML IV SCH (12:01)
[2017-05-10] MEDS: GENTAMICIN 80 MG in IV D5W 50 ML IV SCH ×2 (13:00→16:56)
[2017-05-10] MEDS ORDERED: BUPIVACAINE 0.5 % PF 150 MG/30 ML VIAL ONE (13:37)
[2017-05-10] MEDS ORDERED: LIDOCAINE 0.5% HCL 50 ML VIAL ONE (13:37)
[2017-05-10] MEDS: INSULIN REGULAR, HUMAN 100 UNIT/ML 3 ML VIAL SQ PRN (17:04)
[2017-05-10 19:35] VITALS: BP 119/52
[2017-05-10 19:36] VITALS: BP 119/52
[2017-05-10] MEDS ORDERED: diphenhydrAMINE HCL 25 MG CAPSULE ONE (21:13)
[2017-05-10] MEDS: diphenhydrAMINE HCL 25 MG CAPSULE PO PRN (21:38)
[2017-05-10] MEDS: DONEPEZIL 5 MG TABLET PO SCH (21:42)
[2017-05-10] MEDS: ENOXAPARIN SODIUM 30 MG/0.3 ML DISP.SYRIN SQ SCH (21:43)
[2017-05-10 22:00] VITALS: BP 118/76
[2017-05-10] MEDS: MORPHINE SULFATE INJ 4 MG/ML DISP.SYRIN IV PRN (22:01)
[2017-05-11] MEDS: INSULIN REGULAR, HUMAN 100 UNIT/ML 3 ML VIAL SQ PRN ×2 (05:28→12:01)
[2017-05-11] MEDS: BLOOD SUGAR DIAGNOSTIC 1 EACH STRIP VI SCH ×4 (06:10→22:25)
[2017-05-11 07:10] LABS: EOSINOPHILS % (AUTO) 0.2 % (0.0-6.0); HEMATOCRIT 31 % (39-51); HEMOGLOBIN 10.7 g/dL (13.5-17.5); LYMPHOCYTES # (AUTO) 1.4 /CMM (0.8-4.8); LYMPHOCYTES % (AUTO) 6.5 % (20.0-44.0); MEAN CORPUSCULAR HEMOGLOBIN 30 PG (26.0-33.0); MEAN CORPUSCULAR HGB CONC 34 g/dl (31.0-36.0); MEAN CORPUSCULAR VOLUME 89 fL (80-96); NEUTROPHILS # (AUTO) 18.3 /CMM (1.8-8.9); NEUTROPHILS % (AUTO) 88.3 % (43.0-81.0); PLATELET COUNT (AUTO) 318 /CMM (150-450); RDW COEFFICIENT OF VARIATION 13.3 (11.5-15.0); RED BLOOD CELL COUNT(AUTO) 3.52 MIL/uL (4.5-6.0); WHITE BLOOD COUNT (AUTO) 20.7 K/uL (4.3-11.0)
[2017-05-11 07:16] LABS: CALCIUM, SERUM 8.3 mg/dL (8.5-10.1); CARBON DIOXIDE 29 mmol/L (21-32); CHLORIDE 100 mmol/L (98-107); CREATININE 1.4 mg/dL (0.6-1.3); GLUCOSE 243 mg/dL (74-106); PHOSPHORUS 3.8 mg/dL (2.5-4.9); POTASSIUM 4.1 mmol/L (3.5-5.1); SODIUM SERUM 137 mmol/L (136-145); UREA NITROGEN, BLOOD 34 mg/dL (7-18); VANCOMYCIN,TROUGH 19 ug/ml (12-20)
[2017-05-11] MEDS: VANCOMYCIN 0.75 GM in IV D5W 250 ML IV SCH ×2 (07:43→23:24)
[2017-05-11 08:00] VITALS: BP 152/65
[2017-05-11] MEDS: CARVEDILOL 3.125 MG TABLET PO SCH ×2 (08:34→16:01)
[2017-05-11] MEDS: ATORVASTATIN 10 MG TABLET PO SCH (08:34)
[2017-05-11] MEDS: GABAPENTIN 100 MG CAPSULE PO SCH ×2 (08:34→21:47)
[2017-05-11] MEDS: DOXYCYCLINE HYCLATE (100 MG) 100 MG TABLET PO SCH (08:34)
[2017-05-11] MEDS: LEVOTHYROXINE SODIUM 125 MCG TABLET PO SCH (08:34)
[2017-05-11] MEDS: CADEXOMER IODINE 40 GM TUBE TP SCH (08:35)
[2017-05-11] MEDS: DAKINS QUARTER STRENGTH (0.125%) 480 ML BOTTLE TOP SCH (08:35)
[2017-05-11] MEDS: INSULIN DETEMIR 100 UNIT/ML CARTRIDGE SQ SCH (08:43)
[2017-05-11] MEDS: diphenhydrAMINE HCL 25 MG CAPSULE PO PRN (10:26)
[2017-05-11] MEDS: MORPHINE SULFATE INJ 4 MG/ML DISP.SYRIN IV PRN ×2 (12:01→15:59)
[2017-05-11 12:52] LABS: BAND % (MANUAL) 1 % (0.0-5.0); LYMPHOCYTES % (MANUAL) 11 % (16-48); MONOCYTES % (MANUAL) 3 % (0-11.0); NEUTROPHILS % (MANUAL) 85 (42-76)
[2017-05-11] MEDS: PIPERACILLIN /TAZOBACTAM 2.25 G in IV D5W 50 ML IV SCH ×2 (13:55→17:07)
[2017-05-11] MEDS: LORAZEPAM 1 MG TABLET PO PRN (13:57)
[2017-05-11] MEDS: DEXTROSE 50%-WATER 50 ML DISP.SYRIN IV PRN ×2 (17:06→22:32)
[2017-05-11 20:00] VITALS: BP 139/61
[2017-05-11] MEDS: DONEPEZIL 5 MG TABLET PO SCH (21:47)
[2017-05-11] MEDS: ENOXAPARIN SODIUM 30 MG/0.3 ML DISP.SYRIN SQ SCH (21:48)
[2017-05-12] MEDS: PIPERACILLIN /TAZOBACTAM 2.25 G in IV D5W 50 ML IV SCH ×3 (00:36→11:58)
[2017-05-12] MEDS: DAKINS QUARTER STRENGTH (0.125%) 480 ML BOTTLE TOP SCH (06:26)
[2017-05-12] MEDS: CADEXOMER IODINE 40 GM TUBE TP SCH (06:27)
[2017-05-12] MEDS: INSULIN REGULAR, HUMAN 100 UNIT/ML 3 ML VIAL SQ PRN ×2 (06:39→12:44)
[2017-05-12 07:38] LABS: BASOPHILS % (AUTO) 0.2 % (0.0-2.0); EOSINOPHILS # (AUTO) 0.3 /CMM (0.0-0.7); EOSINOPHILS % (AUTO) 2.1 % (0.0-6.0); HEMATOCRIT 33 % (39-51); HEMOGLOBIN 11.2 g/dL (13.5-17.5); LYMPHOCYTES # (AUTO) 1.8 /CMM (0.8-4.8); LYMPHOCYTES % (AUTO) 11.9 % (20.0-44.0); MEAN CORPUSCULAR HEMOGLOBIN 31 PG (26.0-33.0); MEAN CORPUSCULAR HGB CONC 34 g/dl (31.0-36.0); MEAN CORPUSCULAR VOLUME 89 fL (80-96); MONOCYTES # (AUTO) 0.9 /CMM (0.1-1.30); MONOCYTES % (AUTO) 6.3 % (2.0-12.0); NEUTROPHILS % (AUTO) 79.5 % (43.0-81.0); PLATELET COUNT (AUTO) 335 /CMM (150-450); RDW COEFFICIENT OF VARIATION 13.7 (11.5-15.0); RED BLOOD CELL COUNT(AUTO) 3.66 MIL/uL (4.5-6.0); WHITE BLOOD COUNT (AUTO) 15.1 K/uL (4.3-11.0)
[2017-05-12 07:50] LABS: CALCIUM, SERUM 8.5 mg/dL (8.5-10.1); CARBON DIOXIDE 31 mmol/L (21-32); CHLORIDE 101 mmol/L (98-107); CREATININE 1.2 mg/dL (0.6-1.3); GLUCOSE 257 mg/dL (74-106); MAGNESIUM 1.9 mg/dL (1.8-2.4); PHOSPHORUS 3.4 mg/dL (2.5-4.9); POTASSIUM 4.3 mmol/L (3.5-5.1); SODIUM SERUM 137 mmol/L (136-145); UREA NITROGEN, BLOOD 29 mg/dL (7-18)
[2017-05-12] MEDS: LEVOTHYROXINE SODIUM 125 MCG TABLET PO SCH (09:07)
[2017-05-12] MEDS: ATORVASTATIN 10 MG TABLET PO SCH (09:07)
[2017-05-12] MEDS: CARVEDILOL 3.125 MG TABLET PO SCH ×2 (09:08→16:40)
[2017-05-12] MEDS: BLOOD SUGAR DIAGNOSTIC 1 EACH STRIP VI SCH ×4 (09:08→22:31)
[2017-05-12] MEDS: GABAPENTIN 100 MG CAPSULE PO SCH ×2 (09:09→22:28)
[2017-05-12] MEDS: INSULIN DETEMIR 100 UNIT/ML CARTRIDGE SQ SCH (09:12)
[2017-05-12] MEDS: LORAZEPAM 1 MG TABLET PO PRN ×2 (10:11→18:23)
[2017-05-12] MEDS: hydrALAZINE HCL 25 MG TABLET PO PRN (16:44)
[2017-05-12] MEDS ORDERED: LEVOFLOXACIN (500MG) 500 MG TABLET PO ONE (18:00)
[2017-05-12 20:00] VITALS: BP 130/70
[2017-05-12] MEDS: DONEPEZIL 5 MG TABLET PO SCH (22:28)
[2017-05-12] MEDS: ENOXAPARIN SODIUM 30 MG/0.3 ML DISP.SYRIN SQ SCH (22:29)
[2017-05-13] MEDS: BLOOD SUGAR DIAGNOSTIC 1 EACH STRIP VI SCH ×4 (06:05→22:05)
[2017-05-13] MEDS: INSULIN REGULAR, HUMAN 100 UNIT/ML 3 ML VIAL SQ PRN (06:06)
[2017-05-13] MEDS: CADEXOMER IODINE 40 GM TUBE TP SCH (06:24)
[2017-05-13] MEDS: DAKINS QUARTER STRENGTH (0.125%) 480 ML BOTTLE TOP SCH (06:25)
[2017-05-13 08:00] VITALS: BP 151/60
[2017-05-13 08:11] LABS: CALCIUM, SERUM 8.5 mg/dL (8.5-10.1); CARBON DIOXIDE 32 mmol/L (21-32); CHLORIDE 98 mmol/L (98-107); CREATININE 1.3 mg/dL (0.6-1.3); GLUCOSE 297 mg/dL (74-106); POTASSIUM 3.9 mmol/L (3.5-5.1); SODIUM SERUM 136 mmol/L (136-145); UREA NITROGEN, BLOOD 25 mg/dL (7-18)
[2017-05-13] MEDS: LEVOTHYROXINE SODIUM 125 MCG TABLET PO SCH (09:24)
[2017-05-13] MEDS: GABAPENTIN 100 MG CAPSULE PO SCH ×2 (09:24→22:05)
[2017-05-13] MEDS: CARVEDILOL 3.125 MG TABLET PO SCH ×2 (09:24→17:12)
[2017-05-13] MEDS: INSULIN DETEMIR 100 UNIT/ML CARTRIDGE SQ SCH (09:37)
[2017-05-13] MEDS: LORAZEPAM 1 MG TABLET PO PRN ×2 (15:04→20:58)
[2017-05-13 16:00] VITALS: BP 165/89
[2017-05-13] MEDS: LEVOFLOXACIN (250MG) 250 MG TABLET PO SCH (17:43)
[2017-05-13 20:00] VITALS: BP 158/65
[2017-05-13] MEDS: diphenhydrAMINE HCL 25 MG CAPSULE PO PRN (20:58)
[2017-05-13] MEDS: ENOXAPARIN SODIUM 30 MG/0.3 ML DISP.SYRIN SQ SCH (21:03)
[2017-05-13] MEDS: DONEPEZIL 5 MG TABLET PO SCH (22:05)
[2017-05-13] MEDS: ATORVASTATIN 10 MG TABLET PO SCH (22:10)
[2017-05-14] MEDS: BLOOD SUGAR DIAGNOSTIC 1 EACH STRIP VI SCH ×4 (07:02→21:58)
[2017-05-14] MEDS: INSULIN REGULAR, HUMAN 100 UNIT/ML 3 ML VIAL SQ PRN ×2 (07:03→12:22)
[2017-05-14 07:37] LABS: BASOPHILS % (AUTO) 0.2 % (0.0-2.0); EOSINOPHILS # (AUTO) 0.1 /CMM (0.0-0.7); EOSINOPHILS % (AUTO) 0.6 % (0.0-6.0); HEMATOCRIT 34 % (39-51); HEMOGLOBIN 11.3 g/dL (13.5-17.5); LYMPHOCYTES # (AUTO) 1.4 /CMM (0.8-4.8); LYMPHOCYTES % (AUTO) 5.7 % (20.0-44.0); MEAN CORPUSCULAR HEMOGLOBIN 30 PG (26.0-33.0); MEAN CORPUSCULAR HGB CONC 34 g/dl (31.0-36.0); MEAN CORPUSCULAR VOLUME 89 fL (80-96); MONOCYTES # (AUTO) 1.5 /CMM (0.1-1.30); MONOCYTES % (AUTO) 6.1 % (2.0-12.0); NEUTROPHILS # (AUTO) 21.3 /CMM (1.8-8.9); NEUTROPHILS % (AUTO) 87.4 % (43.0-81.0); PLATELET COUNT (AUTO) 332 /CMM (150-450); RDW COEFFICIENT OF VARIATION 13.4 (11.5-15.0); RED BLOOD CELL COUNT(AUTO) 3.76 MIL/uL (4.5-6.0); WHITE BLOOD COUNT (AUTO) 24.3 K/uL (4.3-11.0)
[2017-05-14 08:00] VITALS: BP 130/69
[2017-05-14 08:07] LABS: CALCIUM, SERUM 8.2 mg/dL (8.5-10.1); CARBON DIOXIDE 33 mmol/L (21-32); CHLORIDE 97 mmol/L (98-107); CREATININE 1.2 mg/dL (0.6-1.3); GLUCOSE 286 mg/dL (74-106); PHOSPHORUS 3.4 mg/dL (2.5-4.9); SODIUM SERUM 135 mmol/L (136-145); UREA NITROGEN, BLOOD 21 mg/dL (7-18)
[2017-05-14] MEDS: CARVEDILOL 3.125 MG TABLET PO SCH ×2 (08:25→18:03)
[2017-05-14] MEDS: LEVOTHYROXINE SODIUM 125 MCG TABLET PO SCH (08:25)
[2017-05-14] MEDS: GABAPENTIN 100 MG CAPSULE PO SCH ×2 (08:25→21:45)
[2017-05-14] MEDS: CADEXOMER IODINE 40 GM TUBE TP SCH (08:26)
[2017-05-14] MEDS: DAKINS QUARTER STRENGTH (0.125%) 480 ML BOTTLE TOP SCH (08:26)
[2017-05-14] MEDS ORDERED: IV NS 0.9% 1,000 ML BAG IV ONE (09:00)
[2017-05-14] MEDS: INSULIN DETEMIR 100 UNIT/ML CARTRIDGE SQ SCH (09:14)
[2017-05-14 16:00] VITALS: BP_SYST 127; BP_SYST 154; BP_DIAS 70; BP_DIAS 90
[2017-05-14] MEDS: LEVOFLOXACIN (250MG) 250 MG TABLET PO SCH (18:02)
[2017-05-14 20:00] VITALS: BP 136/54
[2017-05-14] MEDS: LORAZEPAM 1 MG TABLET PO PRN (20:50)
[2017-05-14] MEDS: ATORVASTATIN 10 MG TABLET PO SCH (21:45)
[2017-05-14] MEDS: DONEPEZIL 5 MG TABLET PO SCH (21:45)
[2017-05-14] MEDS: HYDROCODONE/APAP 5/325MG 1 EACH TABLET PO PRN (21:47)
[2017-05-14] MEDS: ENOXAPARIN SODIUM 30 MG/0.3 ML DISP.SYRIN SQ SCH (21:49)
[2017-05-15] MEDS: INSULIN REGULAR, HUMAN 100 UNIT/ML 3 ML VIAL SQ PRN ×3 (06:14→23:27)
[2017-05-15] MEDS: BLOOD SUGAR DIAGNOSTIC 1 EACH STRIP VI SCH ×4 (06:16→23:01)
[2017-05-15 08:00] VITALS: BP 139/108
[2017-05-15] MEDS: LEVOTHYROXINE SODIUM 125 MCG TABLET PO SCH (09:40)
[2017-05-15] MEDS: GABAPENTIN 100 MG CAPSULE PO SCH ×2 (09:40→21:54)
[2017-05-15] MEDS: CARVEDILOL 3.125 MG TABLET PO SCH ×2 (09:40→17:56)
[2017-05-15] MEDS: CADEXOMER IODINE 40 GM TUBE TP SCH (09:42)
[2017-05-15] MEDS: DAKINS QUARTER STRENGTH (0.125%) 480 ML BOTTLE TOP SCH (09:42)
[2017-05-15] MEDS: INSULIN DETEMIR 100 UNIT/ML CARTRIDGE SQ SCH (10:15)
[2017-05-15 12:52] LABS: BASOPHILS # (AUTO) 0.1 /CMM (0.0-0.2); BASOPHILS % (AUTO) 0.8 % (0.0-2.0); EOSINOPHILS # (AUTO) 0.1 /CMM (0.0-0.7); EOSINOPHILS % (AUTO) 0.7 % (0.0-6.0); HEMATOCRIT 32 % (39-51); HEMOGLOBIN 10.5 g/dL (13.5-17.5); LYMPHOCYTES # (AUTO) 1.1 /CMM (0.8-4.8); LYMPHOCYTES % (AUTO) 5.6 % (20.0-44.0); MEAN CORPUSCULAR HEMOGLOBIN 30 PG (26.0-33.0); MEAN CORPUSCULAR HGB CONC 33 g/dl (31.0-36.0); MEAN CORPUSCULAR VOLUME 89 fL (80-96); MONOCYTES % (AUTO) 5.2 % (2.0-12.0); NEUTROPHILS # (AUTO) 16.5 /CMM (1.8-8.9); NEUTROPHILS % (AUTO) 87.7 % (43.0-81.0); PLATELET COUNT (AUTO) 360 /CMM (150-450); RDW COEFFICIENT OF VARIATION 13.9 (11.5-15.0); RED BLOOD CELL COUNT(AUTO) 3.57 MIL/uL (4.5-6.0); WHITE BLOOD COUNT (AUTO) 18.8 K/uL (4.3-11.0)
[2017-05-15 16:00] VITALS: BP 145/59
[2017-05-15] MEDS: LEVOFLOXACIN (250MG) 250 MG TABLET PO SCH (17:56)
[2017-05-15] MEDS: ATORVASTATIN 10 MG TABLET PO SCH (21:54)
[2017-05-15] MEDS: DONEPEZIL 5 MG TABLET PO SCH (21:54)
[2017-05-15] MEDS: MORPHINE SULFATE INJ 4 MG/ML DISP.SYRIN IV PRN (21:55)
[2017-05-15] MEDS: hydrALAZINE HCL 25 MG TABLET PO PRN (21:55)
[2017-05-15] MEDS: ENOXAPARIN SODIUM 30 MG/0.3 ML DISP.SYRIN SQ SCH (21:59)
[2017-05-16] MEDS: MORPHINE SULFATE INJ 4 MG/ML DISP.SYRIN IV PRN (02:06)
[2017-05-16] MEDS: BLOOD SUGAR DIAGNOSTIC 1 EACH STRIP VI SCH ×4 (06:06→21:53)
[2017-05-16] MEDS: INSULIN REGULAR, HUMAN 100 UNIT/ML 3 ML VIAL SQ PRN ×2 (06:08→12:48)
[2017-05-16] MEDS: DAKINS QUARTER STRENGTH (0.125%) 480 ML BOTTLE TOP SCH (06:59)
[2017-05-16 07:42] LABS: BASOPHILS % (AUTO) 0.4 % (0.0-2.0); EOSINOPHILS # (AUTO) 0.3 /CMM (0.0-0.7); EOSINOPHILS % (AUTO) 2.6 % (0.0-6.0); HEMATOCRIT 29 % (39-51); LYMPHOCYTES # (AUTO) 1.5 /CMM (0.8-4.8); MEAN CORPUSCULAR HEMOGLOBIN 30 PG (26.0-33.0); MEAN CORPUSCULAR HGB CONC 35 g/dl (31.0-36.0); MEAN CORPUSCULAR VOLUME 88 fL (80-96); MONOCYTES # (AUTO) 0.7 /CMM (0.1-1.30); NEUTROPHILS # (AUTO) 9.8 /CMM (1.8-8.9); PLATELET COUNT (AUTO) 325 /CMM (150-450); WHITE BLOOD COUNT (AUTO) 12.3 K/uL (4.3-11.0)
[2017-05-16] MEDS: CARVEDILOL 3.125 MG TABLET PO SCH ×2 (09:07→16:40)
[2017-05-16] MEDS: GABAPENTIN 100 MG CAPSULE PO SCH ×2 (09:07→21:07)
[2017-05-16] MEDS: GENTAMICIN 0.1% OINT 15 GM TUBE TP SCH ×2 (09:07→16:44)
[2017-05-16] MEDS: LEVOTHYROXINE SODIUM 125 MCG TABLET PO SCH (09:08)
[2017-05-16] MEDS: CADEXOMER IODINE 40 GM TUBE TP SCH (09:09)
[2017-05-16] MEDS: INSULIN DETEMIR 100 UNIT/ML CARTRIDGE SQ SCH (09:13)
[2017-05-16] MEDS ORDERED: LEVO250T2 PO (10:53)
[2017-05-16] MEDS: hydrALAZINE HCL 25 MG TABLET PO PRN (16:00)
[2017-05-16] MEDS: DEXTROSE 50%-WATER 50 ML DISP.SYRIN IV PRN (16:08)
[2017-05-16] MEDS: HYDROCODONE/APAP 5/325MG 1 EACH TABLET PO PRN (16:41)
[2017-05-16] MEDS: LEVOFLOXACIN (250MG) 250 MG TABLET PO SCH (17:48)
[2017-05-16 20:00] VITALS: BP 151/66
[2017-05-16] MEDS ORDERED: CLONIDINE HCL 0.1 MG TABLET PO ONE (21:00)
[2017-05-16] MEDS: ATORVASTATIN 10 MG TABLET PO SCH (21:06)
[2017-05-16] MEDS: ENOXAPARIN SODIUM 30 MG/0.3 ML DISP.SYRIN SQ SCH (21:07)
[2017-05-16] MEDS: DONEPEZIL 5 MG TABLET PO SCH (21:07)
[2017-05-16] MEDS ORDERED: SERTRALINE HCL 25 MG TABLET ONE (21:19)
[2017-05-16] MEDS ORDERED: QUETIAPINE FUMARATE 25 MG TABLET ONE (21:20)
[2017-05-16] MEDS ORDERED: QUETIAPINE FUMARATE 25 MG TABLET PO SCH (21:30)
[2017-05-16] MEDS ORDERED: QUETIAPINE FUMARATE 25 MG TABLET PO ONE (21:30)
[2017-05-17] MEDS: INSULIN REGULAR, HUMAN 100 UNIT/ML 3 ML VIAL SQ PRN (06:53)
[2017-05-17] MEDS: BLOOD SUGAR DIAGNOSTIC 1 EACH STRIP VI SCH ×2 (07:17→12:10)
[2017-05-17] MEDS: GENTAMICIN 0.1% OINT 15 GM TUBE TP SCH (08:11)
[2017-05-17] MEDS: DAKINS QUARTER STRENGTH (0.125%) 480 ML BOTTLE TOP SCH (08:12)
[2017-05-17] MEDS: CADEXOMER IODINE 40 GM TUBE TP SCH (08:14)
[2017-05-17 08:16] VITALS: BP 139/71
[2017-05-17] MEDS: LEVOTHYROXINE SODIUM 125 MCG TABLET PO SCH (08:16)
[2017-05-17] MEDS: CARVEDILOL 3.125 MG TABLET PO SCH (08:16)
[2017-05-17] MEDS: GABAPENTIN 100 MG CAPSULE PO SCH (08:16)
[2017-05-17] MEDS: INSULIN DETEMIR 100 UNIT/ML CARTRIDGE SQ SCH (08:21)
== END 2017-05-17 12:45 | DRG 982 ==
LOC: ER 10:42 → MED 13:44 → TELE 14:09 → MED 05-08 11:06
PROVIDERS: ADMIT Internal Medicine; ATTEND Internal Medicine
PROC: 0Y9M0ZZ Drainage of Right Foot, Open Approach (ICD-10-PCS; 2017-05-10)
PROC: 0QBQ0ZZ Excision of Right Toe Phalanx, Open Approach (ICD-10-PCS; principal; 2017-05-10 13:54)
DX: E10.52 Type 1 diabetes mellitus with diabetic peripheral angiopathy with gangrene (principal); I96 Gangrene, not elsewhere classified; E10.22 Type 1 diabetes mellitus with diabetic chronic kidney disease; E10.621 Type 1 diabetes mellitus with foot ulcer; E10.65 Type 1 diabetes mellitus with hyperglycemia; N18.3 Chronic kidney disease, stage 3 (moderate); M86.8X7 Other osteomyelitis, ankle and foot; L03.115 Cellulitis of right lower limb; L02.611 Cutaneous abscess of right foot; L97.518 Non-pressure chronic ulcer of other part of right foot with other specified severity; E78.5 Hyperlipidemia, unspecified; G40.909 Epilepsy, unspecified, not intractable, without status epilepticus; Z86.73 Personal history of transient ischemic attack (TIA), and cerebral infarction without residual deficits; Z95.1 Presence of aortocoronary bypass graft; Z98.1 Arthrodesis status; Z85.850 Personal history of malignant neoplasm of thyroid; Z79.4 Long term (current) use of insulin; I12.9 Hypertensive chronic kidney disease with stage 1 through stage 4 chronic kidney disease, or unspecified chronic kidney disease; N40.0 Benign prostatic hyperplasia without lower urinary tract symptoms; F03.90 Unspecified dementia, unspecified severity, without behavioral disturbance, psychotic disturbance, mood disturbance, and anxiety; M85.80 Other specified disorders of bone density and structure, unspecified site; I25.10 Atherosclerotic heart disease of native coronary artery without angina pectoris; G89.29 Other chronic pain; E89.0 Postprocedural hypothyroidism; E10.69 Type 1 diabetes mellitus with other specified complication; Z79.84 Long term (current) use of oral hypoglycemic drugs; H91.90 Unspecified hearing loss, unspecified ear; Z89.421 Acquired absence of other right toe(s)
CPT/HCPCS: 36415; 71045-TC; 73630-TC; 80048-TC; 80076-TC; 80170-TC; 80202-TC; 81000-TC; 82945-TC; 82962-TC; 83605-TC; 83735-TC; 84100-TC; 84484-TC; 85025-TC; 85730-TC; 87040-TC; 87070-TC; 87075-TC; 87081-TC; 87086-TC; 87186-TC; 88305-TC; 88311-TC; 88312-TC; 97110-TC; 97112-TC; 97530-TC; A4606; A6209; A6253; A6402; A6403; J1100; J1580; J1650; J1815; J2270; J2405; J2543; J3370; J3490; J7030; J7050; J7060; Q0163; Z7610